=== PATIENT | female | born 1940 | race Caucasian/White ===

== ENCOUNTER 2017-10-24 10:26 | Inpatient (IN) | payer MEDICARE, MEDICAID ==
[~2017-10-24] VITALS: Ht 162.6 cm; Wt 62.9 kg
[~2017-10-24 10:26] MED LIST: ALBU8.5H8 IH; AMIN30LI2; APIX2.5T PO; FOLI0.8T22 PO; LACT10SO PO; LEVO250T58 PO; LEVO75TA PO; ONDA4TAB9 SL; OXYC15TA88 PO; PHEN32.43 PO; PRAV10TA38 PO; PRED5TAB PO; TACR1CAP28 PO; TRIA15CR61 TP; VITA1TAB20 PO; VITC500T PO; [UNRECOGNIZED DRUG - CODE] TOP
[2017-10-24] MEDS ORDERED: sucralfate 1 gm tablet PO ONE (11:15)
[2017-10-24] MEDS ORDERED: mag hydrox/Alum hydrox/simeth 30ml oral suspension PO ONE (11:15)
[2017-10-24] MEDS ORDERED: famotidine/PF 10 mg/ml inj IV ONE (11:15)
[2017-10-24] MEDS ORDERED: morphine 4 MG/ML inj SYRINge IV ONE (11:15)
[2017-10-24] MEDS ORDERED: LIDOcaine Viscous 15ml cup PO ONE (11:15)
[2017-10-24 11:18] LABS: BASOPHILS % (AUTO) 0 % (0-1); EOSINOPHILS # (AUTO) 0.1 X10'3 (0-0.9); EOSINOPHILS % (AUTO) 2.3 % (0-6); HEMOGLOBIN 12.8 g/dl (12.0-16.0); LYMPHOCYTES # (AUTO) 0.2 X10'3 (1.1-4.8); MEAN CORPUSCULAR HEMOGLOBIN 33.6 PG (27.0-31.0); MEAN CORPUSCULAR HGB CONC 32.9 % (33.0-36.5); MEAN PLATELET VOLUME 7.7 FL (7.4-10.4); MONOCYTES # (AUTO) 0.4 X10'3 (0-0.9); MONOCYTES % (AUTO) 7.7 % (2-12); NEUTROPHILS # (AUTO) 4.1 X10'3 (1.8-7.7); PLATELET COUNT 108 X10'3 (140-440); RED BLOOD COUNT 3.82 X10'6 (4.20-5.60); RED CELL DISTRIBUTION WIDTH 15.6 % (11.5-14.5); WHITE BLOOD COUNT 4.8 X10'3 (4.5-11.0)
[2017-10-24 11:29] LABS: PARTIAL THROMBOPLASTIN TIME 32 SECONDS (22-32); PROTHROMBIN TIME 10.7 SECONDS (9.0-12.0)
[2017-10-24 11:34] LABS: ALANINE AMINOTRANSFERASE 16 U/L (12-78); ALBUMIN 3.2 G/DL (3.4-5.0); ALBUMIN/GLOBULIN RATIO 0.7 (1.1-1.5); ALKALINE PHOSPHATASE 74 IU/L (46-116); ANION GAP 10 (8-16); ASPARTATE AMINO TRANSFERASE 21 U/L (10-37); BILIRUBIN,TOTAL 0.4 MG/DL (0.1-1.0); BLOOD UREA NITROGEN 50 MG/DL (7-18); BUN/CREATININE RATIO 9.6 (6.6-38.0); CALCIUM 8.2 MG/DL (8.5-10.1); CHLORIDE 97 MMOL/L (99-107); CREATININE 5.23 MG/DL (0.40-0.90); GLUCOSE 114 MG/DL (70-104); POTASSIUM 4.1 MMOL/L (3.5-5.1); SODIUM 138 MMOL/L (135-145); TOTAL CARBON DIOXIDE 31.4 MMOL/L (24-32); eGFR 8 ML/MIN
[2017-10-24] MEDS ORDERED: morphine 4 MG/ML inj SYRINge IM ONE (12:05)
[2017-10-24] MEDS ORDERED: FAMO40TA73 PO (14:16)
[2017-10-24] MEDS ORDERED: levoFLOXACIN-Levaquin 750MG/D5 150 ML IV ONE (15:00)
[2017-10-24] MEDS ORDERED: famotidine 20mg tablet PO ONE (15:00)
[2017-10-24] MEDS ORDERED: acetaminophen 325mg tablet PO PRN (16:30)
[2017-10-24] MEDS ORDERED: bisacodyl 10mg suppository rectal RC PRN (16:30)
[2017-10-24] MEDS ORDERED: ondansetron/PF 4mg/2ml inj IV PRN (16:30)
[2017-10-24] MEDS ORDERED: HYDROmorphone inj. 0.5 MG/0.5 ML DISP.SYRIN IV PRN (16:30)
[2017-10-24] MEDS ORDERED: HYDROcodone/acetaminophen 5mg/325mg tablet PO PRN (16:30)
[2017-10-24] MEDS: diphenhydrAMINE 50 mg/ml inj IV PRN (16:51)
[2017-10-24] MEDS ORDERED: ASCO500C15 PO (17:03)
[2017-10-24] MEDS ORDERED: RANI150T8 PO (17:03)
[2017-10-24] MEDS ORDERED: MULT-38 PO (17:03)
[2017-10-24] MEDS ORDERED: DOCU100C59 PO (17:03)
[2017-10-24] MEDS ORDERED: VIT1TABL50 PO (17:03)
[2017-10-24] MEDS ORDERED: albuterol 2.5 MG/3 ML nebule NEB ONE (17:25)
[2017-10-24] MEDS: docusate sod 100mg capsule PO SCH (19:59)
[2017-10-25] VITALS: BP 121/57
[2017-10-25] MEDS: diphenhydrAMINE 50 mg/ml inj IV PRN ×4 (00:15→23:24)
[2017-10-25] MEDS: oxyCODONE IR 5mg (immed. release) tablet PO PRN ×4 (00:15→19:04)
[2017-10-25] MEDS: pantoprazole 40 MG vial IV SCH ×2 (00:15→08:11)
[2017-10-25 01:10] VITALS: BP 111/55
[2017-10-25 06:02] LABS: BASOPHILS % (AUTO) 0.9 % (0-1); EOSINOPHILS # (AUTO) 0.1 X10'3 (0-0.9); EOSINOPHILS % (AUTO) 3.1 % (0-6); HEMATOCRIT 34.5 % (35.0-45.0); HEMOGLOBIN 11.3 g/dl (12.0-16.0); LYMPHOCYTES # (AUTO) 0.3 X10'3 (1.1-4.8); LYMPHOCYTES % (AUTO) 8.4 % (21-51); MEAN CORPUSCULAR HEMOGLOBIN 32.8 PG (27.0-31.0); MEAN CORPUSCULAR HGB CONC 32.8 % (33.0-36.5); MEAN CORPUSCULAR VOLUME 100.1 FL (78-98); MEAN PLATELET VOLUME 7.8 FL (7.4-10.4); MONOCYTES # (AUTO) 0.5 X10'3 (0-0.9); MONOCYTES % (AUTO) 11.5 % (2-12); NEUTROPHILS # (AUTO) 3.1 X10'3 (1.8-7.7); NEUTROPHILS % (AUTO) 76.1 % (42-75); PLATELET COUNT 89 X10'3 (140-440); RED BLOOD COUNT 3.45 X10'6 (4.20-5.60); RED CELL DISTRIBUTION WIDTH 15.3 % (11.5-14.5)
[2017-10-25 07:21] VITALS: BP 124/63
[2017-10-25] MEDS ORDERED: heparin 1,000 units/ml 10ml inj IV ONE (08:00)
[2017-10-25] MEDS ORDERED: albumin (human) 25% 100ml IV 100 ML IV PRN (08:00)
[2017-10-25] MEDS ORDERED: heparin 1,000unit/ml 10ml vial 10 ML IV ONE (08:00)
[2017-10-25] MEDS ORDERED: levoFLOXACIN-Levaquin 250mg/D5 50 ML IV SCH (08:00)
[2017-10-25 08:10] LABS: ALBUMIN 2.7 G/DL (3.4-5.0); ANION GAP 11 (8-16); BLOOD UREA NITROGEN 62 MG/DL (7-18); BUN/CREATININE RATIO 10.2 (6.6-38.0); CALCIUM 7.6 MG/DL (8.5-10.1); CHLORIDE 96 MMOL/L (99-107); CREATININE 6.07 MG/DL (0.40-0.90); GLUCOSE 86 MG/DL (70-104); MAGNESIUM 2.4 MG/DL (1.5-2.4); PHOSPHORUS 4.2 MG/DL (2.3-4.5); POTASSIUM 4.1 MMOL/L (3.5-5.1); SODIUM 136 MMOL/L (135-145); TOTAL CARBON DIOXIDE 28.9 MMOL/L (24-32); eGFR 7 ML/MIN
[2017-10-25] MEDS: docusate sod 100mg capsule PO SCH ×3 (08:11→19:33)
[2017-10-25] MEDS ORDERED: LIDOcaine 1% (10mg/ml) 2ml vial ONE (09:51)
[2017-10-25 11:15] VITALS: BP 106/68
[2017-10-25] MEDS ORDERED: triamcinolone acetonide 0.5% cream 15gm TP PRN (12:45)
[2017-10-25] MEDS ORDERED: albuterol 2.5 MG/3 ML nebule NEB PRN (12:45)
[2017-10-25] MEDS ORDERED: LIDOcaine/PRILOcaine 5gm cream TP PRN (12:45)
[2017-10-25] MEDS ORDERED: lactulose 20gm/30ml cup PO PRN ×3 (12:55→13:00)
[2017-10-25] MEDS ORDERED: multivitamins, therapeutics tablet PO ONE (15:20)
[2017-10-25] MEDS ORDERED: levoTHYROXINE 75mcg tablet PO ONE (15:20)
[2017-10-25] MEDS ORDERED: folic acid/vitamin B complex w/vitamin C 0.8mg tablet PO ONE (15:20)
[2017-10-25] MEDS ORDERED: lactobacillus rhamnosus 10,000 MMU CELLS/CAPSULE PO ONE (15:20)
[2017-10-25] MEDS ORDERED: docusate sod 100mg capsule PO ONE (15:20)
[2017-10-25] MEDS ORDERED: famotidine 20mg tablet PO ONE (15:20)
[2017-10-25] MEDS ORDERED: ascorbic acid 500mg tablet PO ONE (15:20)
[2017-10-25] MEDS ORDERED: tacrolimus anhydrous 1mg capsule PO ONE (15:25)
[2017-10-25] MEDS ORDERED: predniSONE 5mg tablet PO ONE (15:25)
[2017-10-25] MEDS ORDERED: apixaban 2.5mg tablet PO ONE (15:25)
[2017-10-25] MEDS: tacrolimus anhydrous 1mg capsule PO SCH (17:05)
[2017-10-25] MEDS: folic acid/vitamin B complex w/vitamin C 0.8mg tablet PO SCH (17:05)
[2017-10-25] MEDS: predniSONE 5mg tablet PO SCH (17:06)
[2017-10-25] MEDS: apixaban 2.5mg tablet PO SCH (19:32)
[2017-10-25] MEDS: lactobacillus rhamnosus 10,000 MMU CELLS/CAPSULE PO SCH (19:32)
[2017-10-25 20:00] VITALS: BP 122/74
[2017-10-25] MEDS ORDERED: PROTEIN HYDROLYS SCH (20:00)
[2017-10-25] MEDS ORDERED: AMINO ACIDS SCH (20:00)
[2017-10-26] VITALS: BP 114/62
[2017-10-26] MEDS: oxyCODONE IR 5mg (immed. release) tablet PO PRN ×2 (02:24→09:21)
[2017-10-26 06:00] LABS: ALBUMIN 2.7 G/DL (3.4-5.0); ANION GAP 10 (8-16); BLOOD UREA NITROGEN 38 MG/DL (7-18); BUN/CREATININE RATIO 8.5 (6.6-38.0); CALCIUM 8.1 MG/DL (8.5-10.1); CHLORIDE 97 MMOL/L (99-107); CREATININE 4.45 MG/DL (0.40-0.90); GLUCOSE 88 MG/DL (70-104); MAGNESIUM 2.4 MG/DL (1.5-2.4); PHOSPHORUS 3.5 MG/DL (2.3-4.5); SODIUM 136 MMOL/L (135-145); TOTAL CARBON DIOXIDE 28.7 MMOL/L (24-32); eGFR 10 ML/MIN
[2017-10-26 06:02] LABS: POTASSIUM 4.3 MMOL/L (3.5-5.1)
[2017-10-26 06:09] LABS: BASOPHILS % (AUTO) 0.1 % (0-1); EOSINOPHILS # (AUTO) 0.2 X10'3 (0-0.9); EOSINOPHILS % (AUTO) 4.3 % (0-6); HEMATOCRIT 36.9 % (35.0-45.0); HEMOGLOBIN 12.3 g/dl (12.0-16.0); LYMPHOCYTES # (AUTO) 0.4 X10'3 (1.1-4.8); LYMPHOCYTES % (AUTO) 8.3 % (21-51); MEAN CORPUSCULAR HEMOGLOBIN 34.3 PG (27.0-31.0); MEAN CORPUSCULAR HGB CONC 33.3 % (33.0-36.5); MEAN PLATELET VOLUME 8.3 FL (7.4-10.4); MONOCYTES # (AUTO) 0.5 X10'3 (0-0.9); MONOCYTES % (AUTO) 12.4 % (2-12); NEUTROPHILS # (AUTO) 3.2 X10'3 (1.8-7.7); NEUTROPHILS % (AUTO) 74.9 % (42-75); PLATELET COUNT 90 X10'3 (140-440); RED BLOOD COUNT 3.58 X10'6 (4.20-5.60); RED CELL DISTRIBUTION WIDTH 15.4 % (11.5-14.5); WHITE BLOOD COUNT 4.3 X10'3 (4.5-11.0)
[2017-10-26 07:04] VITALS: BP 116/74
[2017-10-26] MEDS ORDERED: ascorbic acid 500mg tablet PO SCH (08:00)
[2017-10-26] MEDS ORDERED: famotidine 20mg tablet PO SCH (08:00)
[2017-10-26] MEDS ORDERED: levoTHYROXINE 75mcg tablet PO SCH (08:00)
[2017-10-26] MEDS ORDERED: folic acid/vitamin B complex w/vitamin C 0.8mg tablet PO SCH (08:00)
[2017-10-26] MEDS ORDERED: multivitamins, therapeutics tablet PO SCH (08:00)
[2017-10-26] MEDS: docusate sod 100mg capsule PO SCH (08:37)
[2017-10-26] MEDS: lactobacillus rhamnosus 10,000 MMU CELLS/CAPSULE PO SCH (08:37)
[2017-10-26] MEDS: predniSONE 5mg tablet PO SCH (08:38)
[2017-10-26] MEDS: apixaban 2.5mg tablet PO SCH (08:38)
[2017-10-26] MEDS: tacrolimus anhydrous 1mg capsule PO SCH (08:38)
[2017-10-26] MEDS: folic acid/vitamin B complex w/vitamin C 0.8mg tablet PO SCH (08:38)
[2017-10-26] MEDS ORDERED: levoFLOXACIN 250mg tablet PO SCH (11:00)
[2017-10-26 11:13] VITALS: BP 119/65
[2017-10-26] MEDS ORDERED: diphenhydrAMINE 25mg capsule PO PRN (11:25)
[2017-10-26 12:27] VITALS: BP 116/74
[2017-10-26] MEDS ORDERED: PANT-47 PO (15:55)
[2017-10-26] MEDS ORDERED: LEVO250T58 PO (15:55)
[2017-10-26] MEDS ORDERED: GUAI473S11 PO (15:55)
== END 2017-10-26 17:15 | disposition home or self-care (01) | DRG 193 ==
LOC: ER 10:27 → ED HOLD 16:27 → MED 3N 22:17
PROVIDERS: ADMIT Internal Medicine Critical Care Medicine; ATTEND Internal Medicine Critical Care Medicine
PROC: 5A1D70Z Performance of Urinary Filtration, Intermittent, Less than 6 Hours Per Day (ICD-10-PCS; principal; 2017-10-25)
DX: J18.9 Pneumonia, unspecified organism (principal); N18.6 End stage renal disease; I48.91 Unspecified atrial fibrillation; N28.1 Cyst of kidney, acquired; J44.0 Chronic obstructive pulmonary disease with (acute) lower respiratory infection; G89.29 Other chronic pain; K21.9 Gastro-esophageal reflux disease without esophagitis; Z99.2 Dependence on renal dialysis; Z90.2 Acquired absence of lung [part of]; Z90.49 Acquired absence of other specified parts of digestive tract; Z88.8 Allergy status to other drugs, medicaments and biological substances; Z88.1 Allergy status to other antibiotic agents; Z88.0 Allergy status to penicillin; Z88.2 Allergy status to sulfonamides; Z79.899 Other long term (current) drug therapy; Z85.118 Personal history of other malignant neoplasm of bronchus and lung
CPT/HCPCS: 36415; 71045; 71250; 80048; 80053; 83735; 84100; 84484; 85025; 85610; 85730; 87070; 93005; 94640; 94760; 96365; 96372; 97116; 97162; 97530; 99285; A6212; A6258; C9113; G0257; J1200; J1644; J1956; J2270; J3490; J7030; J7507; J7512; Q0163

== ENCOUNTER 2017-11-09 18:52 | Emergency (ER) | payer MEDICARE, MEDICAID ==
[~2017-11-09] VITALS: Ht 162.6 cm; Wt 59.0 kg
[~2017-11-09 18:52] MED LIST changes: +DOCU100C59 PO; +MULT-38 PO; +PANT-47 PO; +VIT1TABL50 PO; -VITA1TAB20 PO
[2017-11-09] MEDS ORDERED: oxyCODONE IR 5mg (immed. release) tablet PO ONE (20:15)
[2017-11-09] MEDS ORDERED: ondansetron/PF 4mg/2ml inj IV ONE (21:35)
[2017-11-09] MEDS ORDERED: morphine 4 MG/ML inj SYRINge IM ONE (21:35)
[2017-11-09] MEDS ORDERED: morphine 4 MG/ML inj SYRINge IV ONE ×2 (22:25→22:40)
[2017-11-09 23:21] VITALS: BP 140/79
== END 2017-11-09 23:31 | disposition home or self-care (01) ==
LOC: EDSEX → MERGE 18:52 → ER 18:52
DX: S02.81XA Fracture of other specified skull and facial bones, right side, initial encounter for closed fracture (principal); S42.411A Displaced simple supracondylar fracture without intercondylar fracture of right humerus, initial encounter for closed fracture; S00.83XA Contusion of other part of head, initial encounter; S20.211A Contusion of right front wall of thorax, initial encounter; N18.6 End stage renal disease; Z88.0 Allergy status to penicillin; Z88.2 Allergy status to sulfonamides; Z88.8 Allergy status to other drugs, medicaments and biological substances; Z79.899 Other long term (current) drug therapy; Z99.2 Dependence on renal dialysis; W01.0XXA Fall on same level from slipping, tripping and stumbling without subsequent striking against object, initial encounter; Y93.89 Activity, other specified; Y92.89 Other specified places as the place of occurrence of the external cause; Y99.8 Other external cause status
CPT/HCPCS: 29105; 70450; 70486; 71045; 72125; 73070; 73110; 96372; 96374; 96375; 99284; A4565; J2270; J2405

== ENCOUNTER 2017-11-20 14:09 | Emergency (ER) | payer MEDICARE, MEDICAID ==
[~2017-11-20] VITALS: Ht 162.6 cm; Wt 58.6 kg
[2017-11-20 14:34] VITALS: BP 101/61
== END 2017-11-20 17:43 | disposition home or self-care (01) ==
LOC: EDSEX → ER 14:10
DX: S42.401D Unspecified fracture of lower end of right humerus, subsequent encounter for fracture with routine healing (principal); I48.91 Unspecified atrial fibrillation; J44.9 Chronic obstructive pulmonary disease, unspecified; Z90.49 Acquired absence of other specified parts of digestive tract; Z98.890 Other specified postprocedural states; Z85.118 Personal history of other malignant neoplasm of bronchus and lung; Z88.0 Allergy status to penicillin; Z88.2 Allergy status to sulfonamides; Z88.8 Allergy status to other drugs, medicaments and biological substances; Z79.899 Other long term (current) drug therapy; X58.XXXD Exposure to other specified factors, subsequent encounter
CPT/HCPCS: 29105; 99283

== ENCOUNTER 2017-11-23 10:24 | Outpatient (CLI) | payer MEDICARE, MEDICAID | END 2017-11-23 11:56 | disposition home or self-care (01) | LOC: ORTHO 10:24 | PROVIDERS: ATTEND Nurse Practitioner Family | DX: S42.414A Nondisplaced simple supracondylar fracture without intercondylar fracture of right humerus, initial encounter for closed fracture (principal); I12.9 Hypertensive chronic kidney disease with stage 1 through stage 4 chronic kidney disease, or unspecified chronic kidney disease; N18.9 Chronic kidney disease, unspecified; I48.91 Unspecified atrial fibrillation; E78.00 Pure hypercholesterolemia, unspecified; J44.9 Chronic obstructive pulmonary disease, unspecified; K21.9 Gastro-esophageal reflux disease without esophagitis; E05.90 Thyrotoxicosis, unspecified without thyrotoxic crisis or storm; Z88.0 Allergy status to penicillin; Z88.5 Allergy status to narcotic agent; Z99.2 Dependence on renal dialysis; Z88.2 Allergy status to sulfonamides; Z88.8 Allergy status to other drugs, medicaments and biological substances; Z87.891 Personal history of nicotine dependence; W01.0XXA Fall on same level from slipping, tripping and stumbling without subsequent striking against object, initial encounter; Y93.89 Activity, other specified; Y92.89 Other specified places as the place of occurrence of the external cause; Y99.8 Other external cause status | CPT/HCPCS: 73080; 99213; A6449 ==

== ENCOUNTER 2017-12-14 14:30 | Outpatient (CLI) | payer MEDICARE, MEDICAID | END 2017-12-14 15:38 | disposition home or self-care (01) | LOC: ORTHO 14:30 | PROVIDERS: ATTEND Nurse Practitioner Family | DX: S42.41 Simple supracondylar fracture without intercondylar fracture of humerus (principal); I48.91 Unspecified atrial fibrillation; E78.00 Pure hypercholesterolemia, unspecified; J44.9 Chronic obstructive pulmonary disease, unspecified; K21.9 Gastro-esophageal reflux disease without esophagitis; N18.9 Chronic kidney disease, unspecified; E05.90 Thyrotoxicosis, unspecified without thyrotoxic crisis or storm; Z88.2 Allergy status to sulfonamides; Z88.8 Allergy status to other drugs, medicaments and biological substances; X58.XXXD Exposure to other specified factors, subsequent encounter | CPT/HCPCS: 73080; 99213; A6449 ==

== ENCOUNTER 2017-12-27 13:54 | Outpatient (CLI) | payer MEDICARE, MEDICAID ==
[~2017-12-27 13:54] MED LIST changes: +CAFFEINE CITRATE 60 MG/3 ML injection vial IV ONE; +regadenoson 0.4mg/5ml syringe IV ONE
[2017-12-27 13:56] VITALS: BP 111/58
== END 2017-12-27 14:46 | disposition home or self-care (01) ==
LOC: ORTHO 13:54
PROVIDERS: ATTEND Nurse Practitioner Family
DX: S42.41 Simple supracondylar fracture without intercondylar fracture of humerus (principal); I48.91 Unspecified atrial fibrillation; J44.9 Chronic obstructive pulmonary disease, unspecified; E78.00 Pure hypercholesterolemia, unspecified; N18.9 Chronic kidney disease, unspecified; E03.9 Hypothyroidism, unspecified; Z88.8 Allergy status to other drugs, medicaments and biological substances; X58.XXXD Exposure to other specified factors, subsequent encounter
CPT/HCPCS: 73080; 99213

== ENCOUNTER 2018-01-18 11:22 | Outpatient (CLI) | payer MEDICARE, MEDICAID ==
[~2018-01-18 11:22] MED LIST changes: -CAFFEINE CITRATE 60 MG/3 ML injection vial IV ONE; -regadenoson 0.4mg/5ml syringe IV ONE
[2018-01-18 11:41] VITALS: BP 115/56
== END 2018-01-18 12:07 | disposition home or self-care (01) ==
LOC: ORTHO 11:22
PROVIDERS: ATTEND Nurse Practitioner Family
DX: S42.41 Simple supracondylar fracture without intercondylar fracture of humerus (principal); I48.91 Unspecified atrial fibrillation; E78.00 Pure hypercholesterolemia, unspecified; J44.9 Chronic obstructive pulmonary disease, unspecified; K21.9 Gastro-esophageal reflux disease without esophagitis; I12.9 Hypertensive chronic kidney disease with stage 1 through stage 4 chronic kidney disease, or unspecified chronic kidney disease; N18.9 Chronic kidney disease, unspecified; E21.3 Hyperparathyroidism, unspecified; Z88.2 Allergy status to sulfonamides; Z88.0 Allergy status to penicillin; Z88.8 Allergy status to other drugs, medicaments and biological substances; X58.XXXD Exposure to other specified factors, subsequent encounter
CPT/HCPCS: 73080; 99213

== ENCOUNTER 2018-02-06 10:27 | Outpatient (CLI) | payer MEDICARE, MEDICAID ==
[2018-02-06 10:31] VITALS: BP 98/59
== END 2018-02-06 11:15 | disposition home or self-care (01) ==
LOC: ORTHO 10:27
PROVIDERS: ATTEND Nurse Practitioner Family
DX: S42.41 Simple supracondylar fracture without intercondylar fracture of humerus (principal); I48.91 Unspecified atrial fibrillation; E78.00 Pure hypercholesterolemia, unspecified; J44.9 Chronic obstructive pulmonary disease, unspecified; K21.9 Gastro-esophageal reflux disease without esophagitis; I12.9 Hypertensive chronic kidney disease with stage 1 through stage 4 chronic kidney disease, or unspecified chronic kidney disease; N18.9 Chronic kidney disease, unspecified; E05.90 Thyrotoxicosis, unspecified without thyrotoxic crisis or storm; Z88.2 Allergy status to sulfonamides; Z88.8 Allergy status to other drugs, medicaments and biological substances; Z87.891 Personal history of nicotine dependence; W01.0XXD Fall on same level from slipping, tripping and stumbling without subsequent striking against object, subsequent encounter
CPT/HCPCS: 73080; 99213

== ENCOUNTER 2018-02-16 19:55 | Emergency (ER) | payer MEDICARE, MEDICAID ==
[~2018-02-16] VITALS: Ht 162.6 cm; Wt 59.1 kg
[~2018-02-16 19:55] MED LIST changes: -oxyCODONE/APAP 10/325mg tablet PO ONE
[2018-02-16 20:00] VITALS: BP 113/63
[2018-02-16] MEDS ORDERED: morphine 4 MG/ML inj SYRINge IM ONE (22:20)
== END 2018-02-16 22:37 | disposition home or self-care (01) ==
LOC: ER 19:56
DX: S50.01XA Contusion of right elbow, initial encounter (principal); I48.91 Unspecified atrial fibrillation; J44.9 Chronic obstructive pulmonary disease, unspecified; Z88.1 Allergy status to other antibiotic agents; Z88.2 Allergy status to sulfonamides; Z91.018 Allergy to other foods; Z79.2 Long term (current) use of antibiotics; Z79.899 Other long term (current) drug therapy; Z99.2 Dependence on renal dialysis; Z90.49 Acquired absence of other specified parts of digestive tract; Z98.890 Other specified postprocedural states; Z94.0 Kidney transplant status; Z90.89 Acquired absence of other organs; W01.0XXA Fall on same level from slipping, tripping and stumbling without subsequent striking against object, initial encounter; Y93.89 Activity, other specified; Y92.89 Other specified places as the place of occurrence of the external cause; Y99.8 Other external cause status
CPT/HCPCS: 73080; 73130; 96372; 99284; J2270

== ENCOUNTER → 2018-02-16 | Emergency (ER) | payer MEDICARE, MEDICAID ==
[~2018-02-16] VITALS: Ht 162.6 cm; Wt 59.1 kg
[~2018-02-16] MED LIST changes: +oxyCODONE/APAP 10/325mg tablet PO ONE
[2018-02-16 07:46] VITALS: BP 112/67
== END | disposition home or self-care (01) ==
LOC: ER 05:00
DX: S80.01XA Contusion of right knee, initial encounter (principal); S70.01XA Contusion of right hip, initial encounter; S09.90XA Unspecified injury of head, initial encounter; I48.91 Unspecified atrial fibrillation; J44.9 Chronic obstructive pulmonary disease, unspecified; Z99.2 Dependence on renal dialysis; Z90.49 Acquired absence of other specified parts of digestive tract; Z98.890 Other specified postprocedural states; Z94.0 Kidney transplant status; Z90.89 Acquired absence of other organs; Z87.891 Personal history of nicotine dependence; Z88.1 Allergy status to other antibiotic agents; Z88.0 Allergy status to penicillin; Z88.2 Allergy status to sulfonamides; Z88.8 Allergy status to other drugs, medicaments and biological substances; Z79.899 Other long term (current) drug therapy; Z79.2 Long term (current) use of antibiotics; W22.8XXA Striking against or struck by other objects, initial encounter; Y93.89 Activity, other specified; Y92.89 Other specified places as the place of occurrence of the external cause; Y99.8 Other external cause status
CPT/HCPCS: 70450; 71045; 72170; 73564; 99284; J7030

== ENCOUNTER 2018-04-07 09:19 | Emergency (ER) | payer MEDICARE, MEDICAID ==
[~2018-04-07] VITALS: Ht 162.6 cm; Wt 59.0 kg
[2018-04-07 11:34] LABS: BASOPHILS % (AUTO) 0.3 % (0-1); EOSINOPHILS # (AUTO) 0.1 X10'3 (0-0.9); EOSINOPHILS % (AUTO) 2.4 % (0-6); HEMATOCRIT 32.5 % (35.0-45.0); HEMOGLOBIN 11.2 g/dl (12.0-16.0); LYMPHOCYTES # (AUTO) 0.3 X10'3 (1.1-4.8); LYMPHOCYTES % (AUTO) 7.6 % (21-51); MEAN CORPUSCULAR HEMOGLOBIN 35.7 PG (27.0-31.0); MEAN CORPUSCULAR HGB CONC 34.5 % (33.0-36.5); MEAN CORPUSCULAR VOLUME 103.5 FL (78-98); MEAN PLATELET VOLUME 8.7 FL (7.4-10.4); MONOCYTES # (AUTO) 0.4 X10'3 (0-0.9); MONOCYTES % (AUTO) 10.5 % (2-12); NEUTROPHILS % (AUTO) 79.2 % (42-75); PLATELET COUNT 84 X10'3 (140-440); RED BLOOD COUNT 3.14 X10'6 (4.20-5.60); RED CELL DISTRIBUTION WIDTH 13.4 % (11.5-14.5); WHITE BLOOD COUNT 3.8 X10'3 (4.5-11.0)
[2018-04-07 11:45] LABS: ALANINE AMINOTRANSFERASE 16 U/L (12-78); ALBUMIN 2.9 G/DL (3.4-5.0); ALBUMIN/GLOBULIN RATIO 0.7 (1.1-1.5); ALKALINE PHOSPHATASE 86 IU/L (46-116); ANION GAP 8 (8-16); ASPARTATE AMINO TRANSFERASE 19 U/L (10-37); BILIRUBIN,TOTAL 0.4 MG/DL (0.1-1.0); BLOOD UREA NITROGEN 48 MG/DL (7-18); BUN/CREATININE RATIO 11.9 (6.6-38.0); CALCIUM 8.4 MG/DL (8.5-10.1); CHLORIDE 99 MMOL/L (99-107); CREATININE 4.05 MG/DL (0.40-0.90); GLUCOSE 87 MG/DL (70-104); SODIUM 141 MMOL/L (135-145); TOTAL PROTEIN 7.3 G/DL (6.4-8.2); eGFR 11 ML/MIN
[2018-04-07 11:48] LABS: PLATELET ESTIMATE DECREASED; POLYCHROMASIA FEW
[2018-04-07 12:57] VITALS: BP 131/70
[2018-04-07] MEDS ORDERED: levoFLOXACIN 250mg tablet PO ONE (13:00)
[2018-04-07] MEDS ORDERED: LEVO500T89 PO (13:11)
== END 2018-04-07 14:03 | disposition home or self-care (01) ==
LOC: ER 09:20
DX: N39.0 Urinary tract infection, site not specified (principal); E87.6 Hypokalemia; J44.9 Chronic obstructive pulmonary disease, unspecified; I48.91 Unspecified atrial fibrillation; Z90.49 Acquired absence of other specified parts of digestive tract; Z88.2 Allergy status to sulfonamides; Z88.0 Allergy status to penicillin; Z88.1 Allergy status to other antibiotic agents; Z91.018 Allergy to other foods; Z79.899 Other long term (current) drug therapy; Z79.2 Long term (current) use of antibiotics
CPT/HCPCS: 36415; 80053; 85025; 87077; 87088; 87186; 99284

== ENCOUNTER 2018-04-24 10:25 | Outpatient (CLI) | payer MEDICARE, MEDICAID ==
[2018-04-24 10:27] VITALS: BP 95/53
== END 2018-04-24 11:11 | disposition home or self-care (01) ==
LOC: ORTHO 10:25
PROVIDERS: ATTEND Nurse Practitioner Family
DX: M25.521 Pain in right elbow (principal); R56.9 Unspecified convulsions; I48.91 Unspecified atrial fibrillation; E78.00 Pure hypercholesterolemia, unspecified; J44.9 Chronic obstructive pulmonary disease, unspecified; K21.9 Gastro-esophageal reflux disease without esophagitis; I12.9 Hypertensive chronic kidney disease with stage 1 through stage 4 chronic kidney disease, or unspecified chronic kidney disease; N18.9 Chronic kidney disease, unspecified; F17.210 Nicotine dependence, cigarettes, uncomplicated; Z90.710 Acquired absence of both cervix and uterus; Z99.2 Dependence on renal dialysis; Z94.0 Kidney transplant status; Z88.0 Allergy status to penicillin; Z88.1 Allergy status to other antibiotic agents; Z88.2 Allergy status to sulfonamides; Z88.8 Allergy status to other drugs, medicaments and biological substances
CPT/HCPCS: 73080; 99213

== ENCOUNTER 2018-07-24 10:45 | Inpatient (IN) | payer MEDICARE, MEDICAID ==
[~2018-07-24] VITALS: Ht 162.6 cm; Wt 68.3 kg
[2018-07-24] VITALS (7 sets, daily range): BP systolic 98–144; BP diastolic 42–73
[2018-07-24] MEDS ORDERED: normal saline 1000ML IV soln IVB ONE (11:10)
[2018-07-24 11:42] LABS: BASOPHILS % (AUTO) 0.2 % (0-1); EOSINOPHILS % (AUTO) 0.6 % (0-6); HEMATOCRIT 40.7 % (35.0-45.0); HEMOGLOBIN 13.3 g/dl (12.0-16.0); LYMPHOCYTES # (AUTO) 0.1 X10'3 (1.1-4.8); LYMPHOCYTES % (AUTO) 1.9 % (21-51); MEAN CORPUSCULAR HGB CONC 32.7 % (33.0-36.5); MEAN CORPUSCULAR VOLUME 103.9 FL (78-98); MONOCYTES # (AUTO) 0.4 X10'3 (0-0.9); MONOCYTES % (AUTO) 5.5 % (2-12); NEUTROPHILS # (AUTO) 6.3 X10'3 (1.8-7.7); NEUTROPHILS % (AUTO) 91.8 % (42-75); PLATELET COUNT 134 X10'3 (140-440); RED BLOOD COUNT 3.92 X10'6 (4.20-5.60); RED CELL DISTRIBUTION WIDTH 16.4 % (11.5-14.5); WHITE BLOOD COUNT 6.8 X10'3 (4.5-11.0)
[2018-07-24 12:01] LABS: ALANINE AMINOTRANSFERASE 24 U/L (12-78); ALBUMIN 3.2 G/DL (3.4-5.0); ALBUMIN/GLOBULIN RATIO 0.6 (1.1-1.5); ALKALINE PHOSPHATASE 100 IU/L (46-116); ANION GAP 12 (8-16); ASPARTATE AMINO TRANSFERASE 31 U/L (10-37); BILIRUBIN,TOTAL 0.6 MG/DL (0.1-1.0); BLOOD UREA NITROGEN 46 MG/DL (7-18); BUN/CREATININE RATIO 9.8 (6.6-38.0); CALCIUM 8.6 MG/DL (8.5-10.1); CHLORIDE 96 MMOL/L (99-107); CREATININE 4.69 MG/DL (0.40-0.90); GLUCOSE 102 MG/DL (70-104); SODIUM 138 MMOL/L (135-145); TOTAL CARBON DIOXIDE 29.6 MMOL/L (24-32); TOTAL PROTEIN 8.6 G/DL (6.4-8.2); eGFR 9 ML/MIN
[2018-07-24] MEDS ORDERED: diltiazem 5mg/ml 5ml inj. IV ONE (12:05)
[2018-07-24 12:06] LABS: POTASSIUM 3.6 MMOL/L (3.5-5.1)
[2018-07-24 12:07] LABS: INR 1.2 INR; PROTHROMBIN TIME 11.9 SECONDS (9.0-12.0)
--- NOTE | 2018-07-24 12:20 | NUR ---
REPORTED TO PROVIDER FRANKO MONSALVE THAT PTS BPS HAVE BEEN LOW, CARDIZEM NOT GIVEN. PT NOW MORE ALERT AND REQUESTING THAT HER "ROUTINE OXY" IS PAST DUE. PT EDUCATED THAT HER VS ARE TO LOW. PT REPOSITIONED FOR COMFORT AND PROVIDER UPDATED ON PT REQUEST
[2018-07-24 12:28] LABS: TROPONIN I 0.08 NG/ML (0.0-0.05)
[2018-07-24] MEDS ORDERED: naloxone 0.4 mg/ml inj IV ONE (12:30)
--- NOTE | 2018-07-24 12:50 | NUR ---
PT BEING SEEN BY DR TAVERAS AT BEDSIDE, RECEIVED VO TO NOT ADMINISTER CARDIZEM
[2018-07-24] MEDS ORDERED: albumin (Human) 5% 250ml 250 ML IV ONE ×2 (12:55→15:40)
--- NOTE | 2018-07-24 14:50 | NUR ---
WARM BLANKET GIVEN AND SOCKS PUT ON HER FEET.
[2018-07-24] MEDS ORDERED: acetaminophen 325mg tablet PO PRN (15:15)
[2018-07-24] MEDS ORDERED: bisacodyl 10mg suppository rectal RC PRN (15:15)
--- NOTE | 2018-07-24 15:33 | NUR ---
REPORTED TO DR. TAVERAS THAT PTS BPS ARE TRENDING DOWN AGAIN WITH MOST RECENT READING OF 82/38 AND HR 96. RECEIVED VO TO ADMINISTER ALBUMIN 5% 250ML IV X1 NOW.
--- NOTE | 2018-07-24 17:00 | NUR ---
Pt. to room 2009 from ED. A&0 x 4. Pics taken of sacrum/coccyx area that is red and non-blanching. No open area noted. Pt. immediately turned onto left side to offset pressure on red area. Foam dressing applied as well. VSS. Oral care provided to pt. Warm blankets provided to pt. Call light given. RN to call pt's spouse Don to check on him per pt. request.
--- NOTE | 2018-07-24 18:30 | NUR ---
Patient in room CICU 2008. I have received report from Sri MEJIAS, and had the opportunity to ask questions and assume patient care.
[2018-07-24] MEDS: HYDROmorphone inj. 0.5 MG/0.5 ML DISP.SYRIN IV PRN (18:55)
--- NOTE | 2018-07-24 19:00 | NUR ---
0.5mg PRN Dialudid given d/t PT calling out stating she hurt all over. PT was noted to be trembling. Will continue to monitor.
[2018-07-24] MEDS: ondansetron/PF 4mg/2ml inj IV PRN (19:02)
--- NOTE | 2018-07-24 19:30 | NUR ---
PT resting with no s/s of distress noted at this time. VSS. PT receiving 2L O2 to NC and tolerating well, O2 >94%. PT has 20g PIV to LUPE, flushes easily and is SL. Bed is locked and low. Call light is within reach. Will continue to monitor.
[2018-07-24] MEDS: docusate sod 100mg capsule PO SCH (21:13)
[2018-07-24] MEDS ORDERED: proCHLORperazine 10 MG/2 ml inj IV ONE (22:20)
--- NOTE | 2018-07-24 23:00 | NUR ---
PT had an episode of emesis, green bile. PT has received PRN Zofran 3 hrs prior, STILL OPERATOR GIN Dariel notified, order received for a one time order of 10mg Compazine. PT was cleaned up and is now resting with no s/s of distress noted at this time. Will continue to monitor.
[2018-07-25] VITALS (25 sets, daily range): BP systolic 70–120; BP diastolic 37–64
[2018-07-25] MEDS ORDERED: amiodarone 150mg/dext, iso-os 100 ML IV ONE ×2 (01:45→21:55)
[2018-07-25] MEDS ORDERED: albumin 25% 50mL bottle 100 ML IV ONE ×5 (02:20→21:55)
[2018-07-25] MEDS: albumin 25% 50mL bottle 100 ML IV SCH ×3 (02:34→02:36)
--- NOTE | 2018-07-25 02:45 | NUR ---
PT HR has been trending up, and BP trending down. FRAMING SPECIALIST Dariel notified and order received for Amiodarone loading dose. Will continue to monitor as well as 200ml of 25% albumin. Will continue to monitor.
--- NOTE | 2018-07-25 03:30 | NUR ---
Pharmacy called d/t second Albumin order being cancelled for being a duplicate. Pharmacist states two separate orders were not needed. PT did receive a total of 200ml as ordered from NURY Vieira.
--- NOTE | 2018-07-25 06:00 | NUR ---
Patient in room CICU 2008. I have received report from MAGALIE Watson and had the opportunity to ask questions and assume patient care.
--- NOTE | 2018-07-25 06:40 | NUR ---
Problems reprioritized. Patient report given, questions answered & plan of care reviewed with Robert MEJIAS.
[2018-07-25] MEDS: docusate sod 100mg capsule PO SCH ×2 (07:22→08:00)
[2018-07-25] MEDS: HYDROcodone/acetaminophen 5mg/325mg tablet PO PRN ×2 (07:23→12:04)
[2018-07-25] MEDS ORDERED: albuterol 2.5 MG/3 ML nebule NEB PRN (07:25)
[2018-07-25] MEDS ORDERED: LIDOcaine/PRILOcaine 5gm cream TP PRN (07:30)
[2018-07-25] MEDS ORDERED: lactulose 20gm/30ml cup PO PRN (07:30)
[2018-07-25] MEDS ORDERED: betamethasone diprop. 0.05% ointment 15gm TP PRN (07:40)
[2018-07-25] MEDS: tacrolimus anhydrous 1mg capsule PO SCH (08:00)
[2018-07-25] MEDS ORDERED: albumin (Human) 5% 250ml 250 ML IV PRN (08:00)
[2018-07-25] MEDS: apixaban 2.5mg tablet PO SCH ×2 (08:11→19:56)
[2018-07-25] MEDS: folic acid/vitamin B complex w/vitamin C 0.8mg tablet PO SCH (08:11)
[2018-07-25] MEDS: atorvastatin 10mg tablet PO SCH (08:11)
[2018-07-25] MEDS: ascorbic acid 500mg tablet PO SCH (08:11)
[2018-07-25] MEDS: multivitamins, therapeutics tablet PO SCH (08:12)
[2018-07-25] MEDS: predniSONE 5mg tablet PO SCH (08:12)
[2018-07-25] MEDS: levoTHYROXINE 75mcg tablet PO SCH (08:14)
[2018-07-25] MEDS: ondansetron/PF 4mg/2ml inj IV PRN ×2 (08:24→13:34)
[2018-07-25] MEDS ORDERED: LIDOcaine 1%/PF 5ML 10 MG/ML VIAL SQ ONE (09:55)
--- NOTE | 2018-07-25 10:00 | NUR ---
talked with md koenig about pts pain regemine he will restart at home dose
[2018-07-25 10:46] LABS: BASOPHILS % (AUTO) 0.1 % (0-1); EOSINOPHILS % (AUTO) 0 % (0-6); HEMATOCRIT 33.3 % (35.0-45.0); HEMOGLOBIN 10.8 g/dl (12.0-16.0); LYMPHOCYTES # (AUTO) 0.1 X10'3 (1.1-4.8); LYMPHOCYTES % (AUTO) 1.6 % (21-51); MEAN CORPUSCULAR HEMOGLOBIN 33.5 PG (27.0-31.0); MEAN CORPUSCULAR HGB CONC 32.4 % (33.0-36.5); MEAN CORPUSCULAR VOLUME 103.4 FL (78-98); MONOCYTES # (AUTO) 0.3 X10'3 (0-0.9); MONOCYTES % (AUTO) 6.6 % (2-12); NEUTROPHILS # (AUTO) 4.4 X10'3 (1.8-7.7); NEUTROPHILS % (AUTO) 91.7 % (42-75); PLATELET COUNT 81 X10'3 (140-440); RED BLOOD COUNT 3.22 X10'6 (4.20-5.60); RED CELL DISTRIBUTION WIDTH 16.7 % (11.5-14.5); WHITE BLOOD COUNT 4.8 X10'3 (4.5-11.0)
[2018-07-25 10:47] LABS: ALBUMIN 3.3 G/DL (3.4-5.0); ANION GAP 16 (8-16); BLOOD UREA NITROGEN 61 MG/DL (7-18); BUN/CREATININE RATIO 10.9 (6.6-38.0); CALCIUM 7.8 MG/DL (8.5-10.1); CHLORIDE 98 MMOL/L (99-107); CREATININE 5.62 MG/DL (0.40-0.90); GLUCOSE 126 MG/DL (70-104); POTASSIUM 3.8 MMOL/L (3.5-5.1); SODIUM 138 MMOL/L (135-145); TOTAL CARBON DIOXIDE 24.1 MMOL/L (24-32); eGFR 7 ML/MIN
[2018-07-25 11:09] LABS: INR 1.5 INR; PROTHROMBIN TIME 14.5 SECONDS (9.0-12.0)
[2018-07-25] MEDS ORDERED: OXYCODONE HCL 10 MG PO PRN (11:50)
[2018-07-25] MEDS ORDERED: ALBUTEROL SULFATE IH PRN (11:50)
[2018-07-25 11:51] LABS: PHOSPHORUS 3.8 MG/DL (2.3-4.5)
[2018-07-25] MEDS: diphenhydrAMINE 25mg capsule PO PRN (12:35)
[2018-07-25] MEDS: oxyCODONE IR 5mg (immed. release) tablet PO PRN ×2 (14:21→21:44)
--- NOTE | 2018-07-25 14:37 | NUR ---
Pt threw up within 2 minutes of her oxy administration i explained to her i cannot re administer it again, called md koenig waiting for a call back will continue to monitor
[2018-07-25 15:38] LABS: AMYLASE 34 U/L (25-115); LIPASE < 50 U/L (73-393)
[2018-07-25] MEDS ORDERED: diltiazem-D5W 125mg/125ml 125 ML IV SCH (15:45)
--- NOTE | 2018-07-25 16:57 | NUR ---
Patient in room CICU 2008. pt will be transferred to [facility]. I have received report from MAGALIE Greer and had the opportunity to ask questions and assume patient care.
--- NOTE | 2018-07-25 17:00 | NUR ---
Problems reprioritized. Patient report given, questions answered & plan of care reviewed with PCU nurse.
--- NOTE | 2018-07-25 17:05 | NUR ---
Pt transferred to PCU on bed all belongings sent with the pt, pt on transport monitor and then placed on mobile once on tele. Pt has a baseline of a low bp her last bp systolic in the low 100's. Cardizem gtt sent with pt and was labeled and hung up for the PCU nurse informed her of the set rate per md koenig and the delay in the gtt being hung was due to pharmacy. Nurse had no further questions she was with the pt at bedside and had orient with her. Pt was resting quietly and vitals stable.
--- NOTE | 2018-07-25 17:15 | NUR ---
PT ARRIVED WITH ALL BELONGINGS. PT PLACED ON BEDSIDE MOBILE FOR CARDIZEM DRIP TO BE STARTED AT SET RATE @ 10. PTS BP IN 90'S, WILL MONITOR. PT RESTING, ARRIVED AT BEDSIDE. ALL NEEDS ADDRESSED.
--- NOTE | 2018-07-25 18:30 | NUR ---
Problems reprioritized. Patient report given, questions answered & plan of care reviewed with MAGALIE PINEDA.
[2018-07-25] MEDS: PRO STAT PO SCH (20:00)
[2018-07-25] MEDS ORDERED: pravastatin 10mg tablet PO SCH (21:00)
[2018-07-25] MEDS: amiodarone/D5 360MG/200ML BAG 200 ML IV SCH (23:53)
[2018-07-26] VITALS (16 sets, daily range): BP systolic 73–103; BP diastolic 43–71
[2018-07-26] MEDS: amiodarone/D5 360MG/200ML BAG 200 ML IV SCH ×3 (03:55→16:05)
[2018-07-26] MEDS: oxyCODONE IR 5mg (immed. release) tablet PO PRN ×2 (03:58→10:04)
[2018-07-26 05:34] LABS: BASOPHILS % (AUTO) 0 % (0-1); EOSINOPHILS % (AUTO) 0 % (0-6); HEMATOCRIT 33.6 % (35.0-45.0); HEMOGLOBIN 10.9 g/dl (12.0-16.0); LYMPHOCYTES # (AUTO) 0.1 X10'3 (1.1-4.8); LYMPHOCYTES % (AUTO) 3.2 % (21-51); MEAN CORPUSCULAR HEMOGLOBIN 33.7 PG (27.0-31.0); MEAN CORPUSCULAR HGB CONC 32.3 % (33.0-36.5); MEAN CORPUSCULAR VOLUME 104.3 FL (78-98); MEAN PLATELET VOLUME 9.1 FL (7.4-10.4); MONOCYTES # (AUTO) 0.5 X10'3 (0-0.9); MONOCYTES % (AUTO) 12.6 % (2-12); NEUTROPHILS # (AUTO) 3.5 X10'3 (1.8-7.7); NEUTROPHILS % (AUTO) 84.2 % (42-75); RED BLOOD COUNT 3.22 X10'6 (4.20-5.60); RED CELL DISTRIBUTION WIDTH 17.3 % (11.5-14.5); WHITE BLOOD COUNT 4.1 X10'3 (4.5-11.0)
[2018-07-26 05:47] LABS: ALBUMIN 3.6 G/DL (3.4-5.0); ANION GAP 12 (8-16); BLOOD UREA NITROGEN 37 MG/DL (7-18); BUN/CREATININE RATIO 8.9 (6.6-38.0); CALCIUM 8.5 MG/DL (8.5-10.1); CHLORIDE 98 MMOL/L (99-107); CREATININE 4.17 MG/DL (0.40-0.90); GLUCOSE 119 MG/DL (70-104); POTASSIUM 3.7 MMOL/L (3.5-5.1); SODIUM 139 MMOL/L (135-145); TOTAL CARBON DIOXIDE 29.2 MMOL/L (24-32); eGFR 10 ML/MIN
--- NOTE | 2018-07-26 06:15 | NUR ---
Patient in room PCU 3024. I have received report from MAGALIE Her and had the opportunity to ask questions and assume patient care.
[2018-07-26 06:19] LABS: PLATELET COUNT 48 X10'3 (140-440)
[2018-07-26] MEDS: predniSONE 5mg tablet PO SCH ×2 (08:00→09:15)
[2018-07-26] MEDS: PRO STAT PO SCH ×2 (08:00→19:55)
[2018-07-26] MEDS ORDERED: non-formulary drug (Vit B Cmplx 3/FA/Vit C/Biotin (Rena-Vite Rx Tablet) 1 TAB) PO SCH (08:00)
[2018-07-26] MEDS: levoTHYROXINE 75mcg tablet PO SCH (09:14)
[2018-07-26] MEDS: atorvastatin 10mg tablet PO SCH (09:14)
[2018-07-26] MEDS: multivitamins, therapeutics tablet PO SCH (09:14)
[2018-07-26] MEDS: pantoprazole 40mg Tablet.DR PO SCH (09:15)
[2018-07-26] MEDS: apixaban 2.5mg tablet PO SCH (09:15)
[2018-07-26] MEDS: ascorbic acid 500mg tablet PO SCH (09:15)
[2018-07-26] MEDS: docusate sod 100mg capsule PO SCH (09:15)
[2018-07-26] MEDS: folic acid/vitamin B complex w/vitamin C 0.8mg tablet PO SCH (09:16)
[2018-07-26] MEDS: ondansetron/PF 4mg/2ml inj IV PRN (09:28)
--- NOTE | 2018-07-26 09:30 | NUR ---
MD TAVERAS CALLED INFORMED THAT PT IS STILL VOMITING AND THROWING UP AND HER BELLY HURTS NO ORDERS FOR CT YET
--- NOTE | 2018-07-26 09:30 | NUR ---
oral medications admistered pt threw them up shortly after zofran admistered will tell MD when he rounds
[2018-07-26] MEDS: tacrolimus anhydrous 1mg capsule PO SCH (10:04)
[2018-07-26] MEDS ORDERED: pneumococcal 23-VAL P-sac vacc 25 mcg/0.5ml vial IMVAC ONE (12:20)
[2018-07-26] MEDS ORDERED: vancomycin/NS 1 GM ADD-VANTAGE 250 ML IV ONE (14:35)
--- NOTE | 2018-07-26 15:00 | NUR ---
MD TAVERAS CALLED ABOUT PTS TEMP 103.1 HE ADDED ABX AND ORDERED CT OF ABD WITH CONTRAST
--- NOTE | 2018-07-26 15:15 | NUR ---
GOT CONSENT FOR CONTRAST FROM RAFAEL RN WAS SECOND TELEPHONE MAGALIE GARDNER
[2018-07-26] MEDS: levoFLOXACIN-Levaquin 250mg/D5 50 ML IV SCH (15:17)
[2018-07-26] MEDS: metroNIDAZOLE-Flagyl 500mg/NS 100 ML IV SCH ×2 (16:05→23:09)
--- NOTE | 2018-07-26 18:21 | NUR ---
Problems reprioritized. Patient report given, questions answered & plan of care reviewed with MAGALIE Curtis.
--- NOTE | 2018-07-26 18:53 | NUR ---
Patient in room PCU 3024. I have received report from Robert MEJIAS and had the opportunity to ask questions and assume patient care.
[2018-07-26] MEDS: diatr meglu/diatrizoate 30ml oral sol.-(3 dose) bottle PO SCH (23:08)
[2018-07-27] VITALS (8 sets, daily range): BP systolic 86–109; BP diastolic 44–60
[2018-07-27] MEDS: amiodarone/D5 360MG/200ML BAG 200 ML IV SCH ×5 (03:17→22:23)
--- NOTE | 2018-07-27 04:30 | NUR ---
pt found with NG tube out. re-placed NG tube and checked placement. put pt on low intermittent suction. pt tolerated procedure well. will continue to monitor.
[2018-07-27 05:26] LABS: BASOPHILS % (AUTO) 0 % (0-1); EOSINOPHILS % (AUTO) 0 % (0-6); HEMATOCRIT 35.1 % (35.0-45.0); HEMOGLOBIN 11.4 g/dl (12.0-16.0); LYMPHOCYTES # (AUTO) 0.1 X10'3 (1.1-4.8); LYMPHOCYTES % (AUTO) 2.1 % (21-51); MEAN CORPUSCULAR HEMOGLOBIN 33.9 PG (27.0-31.0); MEAN CORPUSCULAR HGB CONC 32.4 % (33.0-36.5); MEAN CORPUSCULAR VOLUME 104.4 FL (78-98); MEAN PLATELET VOLUME 10.4 FL (7.4-10.4); MONOCYTES # (AUTO) 0.4 X10'3 (0-0.9); MONOCYTES % (AUTO) 8.2 % (2-12); NEUTROPHILS % (AUTO) 89.7 % (42-75); PLATELET COUNT 61 X10'3 (140-440); RED BLOOD COUNT 3.36 X10'6 (4.20-5.60); RED CELL DISTRIBUTION WIDTH 17.5 % (11.5-14.5); WHITE BLOOD COUNT 4.5 X10'3 (4.5-11.0)
[2018-07-27 05:47] LABS: ALBUMIN 3.3 G/DL (3.4-5.0); ANION GAP 15 (8-16); BLOOD UREA NITROGEN 54 MG/DL (7-18); BUN/CREATININE RATIO 10.4 (6.6-38.0); CALCIUM 8.7 MG/DL (8.5-10.1); CHLORIDE 98 MMOL/L (99-107); CREATININE 5.21 MG/DL (0.40-0.90); GLUCOSE 117 MG/DL (70-104); MAGNESIUM 2.1 MG/DL (1.5-2.4); PHOSPHORUS 3.2 MG/DL (2.3-4.5); SODIUM 139 MMOL/L (135-145); TOTAL CARBON DIOXIDE 25.7 MMOL/L (24-32); eGFR 8 ML/MIN
--- NOTE | 2018-07-27 06:10 | NUR ---
Patient in room PCU 3024. I have received report from Ernestina MEJIAS and had the opportunity to ask questions and assume patient care.
--- NOTE | 2018-07-27 06:18 | NUR ---
Problems reprioritized. Patient report given, questions answered & plan of care reviewed with Jose R MEJIAS.
[2018-07-27 07:17] LABS: ANISOCYTOSIS 1+; PLATELET ESTIMATE DECREASED; TOTAL CELLS COUNTED 100
[2018-07-27 07:18] LABS: POIKILOCYTOSIS FEW
[2018-07-27] MEDS: diatr meglu/diatrizoate 30ml oral sol.-(3 dose) bottle PO SCH ×2 (07:29→09:08)
[2018-07-27] MEDS: folic acid/vitamin B complex w/vitamin C 0.8mg tablet PO SCH (07:52)
[2018-07-27] MEDS: levoTHYROXINE 75mcg tablet PO SCH (07:52)
[2018-07-27] MEDS: pantoprazole 40mg Tablet.DR PO SCH (07:52)
[2018-07-27] MEDS: atorvastatin 10mg tablet PO SCH (07:52)
[2018-07-27] MEDS: predniSONE 5mg tablet PO SCH ×2 (07:53→08:00)
[2018-07-27] MEDS: ascorbic acid 500mg tablet PO SCH (07:53)
[2018-07-27] MEDS: multivitamins, therapeutics tablet PO SCH (07:53)
[2018-07-27] MEDS: metroNIDAZOLE-Flagyl 500mg/NS 100 ML IV SCH (07:54)
[2018-07-27] MEDS: levoFLOXACIN-Levaquin 250mg/D5 50 ML IV SCH (07:54)
[2018-07-27] MEDS ORDERED: epoetin 20,000 units/ml inj IV ONE (08:00)
[2018-07-27] MEDS: PRO STAT PO SCH ×2 (08:00→20:00)
[2018-07-27] MEDS: docusate sod 100mg capsule PO SCH (08:00)
[2018-07-27] MEDS ORDERED: albumin (Human) 5% 250ml 250 ML IV PRN (08:00)
[2018-07-27] MEDS ORDERED: iohexol 300mg/ml 100ml inj. ONE (09:05)
[2018-07-27] MEDS: tacrolimus anhydrous 1mg capsule PO SCH (09:08)
[2018-07-27] MEDS ORDERED: LIDOcaine 1% (10mg/ml) 2ml vial SQ ONE (09:45)
[2018-07-27] MEDS: oxyCODONE IR 5mg (immed. release) tablet PO PRN (12:51)
--- NOTE | 2018-07-27 18:20 | NUR ---
Problems reprioritized. Patient report given, questions answered & plan of care reviewed with Deep RN.
[2018-07-27] MEDS: HYDROmorphone inj. 0.5 MG/0.5 ML DISP.SYRIN IV PRN ×2 (19:27→23:44)
--- NOTE | 2018-07-27 23:57 | NUR ---
Paged and notified Dr. Tresa FANG in regards to positive blood culture results. PAGER ID: [phone] MESSAGE: [id number] Elvis Pena. pt second set of blood cultures have resulted with gram (-) rods in anaerobic bottle @8 hours from dialysis fistula site. Currently has active orders for Levaquin and Flagyl. Viral MEJIAS Tele #[id number]
[2018-07-28] VITALS (10 sets, daily range): BP systolic 82–101; BP diastolic 39–57
--- NOTE | 2018-07-28 00:03 | NUR ---
Called and notified Therese Zeferino ARRINGTON in regards to pt second set of positive blood cultures. Orders to cont treatment as prescribed with no new orders at this time. Will cont to monitor. 3024-Elvis Mckeon. pt second set of blood cultures have resulted with gram (-) rods in anaerobic bottle @8 hours from dialysis fistula site. Currently has active orders for Levaquin and Flagyl.
[2018-07-28] MEDS: metroNIDAZOLE 500mg tablet PO SCH ×3 (01:24→15:59)
[2018-07-28] MEDS: temazepam 15mg capsule PO PRN ×2 (01:25→21:19)
[2018-07-28] MEDS: amiodarone/D5 360MG/200ML BAG 200 ML IV SCH ×4 (04:15→22:39)
--- NOTE | 2018-07-28 05:22 | NUR ---
pt second set of blood cultures have resulted with gram (-) rods in aerobic bottle from dialysis fistula site. Currently has active orders for Levaquin and Flagyl. No new orders at this time, will cont to monitor.
[2018-07-28 06:16] LABS: BASOPHILS % (AUTO) 0 % (0-1); EOSINOPHILS % (AUTO) 0 % (0-6); HEMATOCRIT 32.5 % (35.0-45.0); HEMOGLOBIN 10.6 g/dl (12.0-16.0); LYMPHOCYTES # (AUTO) 0.1 X10'3 (1.1-4.8); LYMPHOCYTES % (AUTO) 2.1 % (21-51); MEAN CORPUSCULAR HEMOGLOBIN 33.8 PG (27.0-31.0); MEAN CORPUSCULAR HGB CONC 32.7 % (33.0-36.5); MEAN CORPUSCULAR VOLUME 103.4 FL (78-98); MEAN PLATELET VOLUME 10.8 FL (7.4-10.4); MONOCYTES # (AUTO) 0.8 X10'3 (0-0.9); NEUTROPHILS # (AUTO) 6.1 X10'3 (1.8-7.7); NEUTROPHILS % (AUTO) 86.9 % (42-75); PLATELET COUNT 57 X10'3 (140-440); RED BLOOD COUNT 3.14 X10'6 (4.20-5.60); RED CELL DISTRIBUTION WIDTH 17.5 % (11.5-14.5)
[2018-07-28 06:30] LABS: ANION GAP 16 (8-16); BLOOD UREA NITROGEN 34 MG/DL (7-18); BUN/CREATININE RATIO 9.7 (6.6-38.0); CALCIUM 8.6 MG/DL (8.5-10.1); CHLORIDE 98 MMOL/L (99-107); CREATININE 3.51 MG/DL (0.40-0.90); GLUCOSE 103 MG/DL (70-104); PHOSPHORUS 2.7 MG/DL (2.3-4.5); POTASSIUM 3.8 MMOL/L (3.5-5.1); SODIUM 139 MMOL/L (135-145); TOTAL CARBON DIOXIDE 25.4 MMOL/L (24-32); eGFR 13 ML/MIN
--- NOTE | 2018-07-28 07:06 | NUR ---
Problems reprioritized. Patient report given, questions answered & plan of care reviewed with MAGALIE Quiroz.
[2018-07-28] MEDS: pantoprazole 40mg Tablet.DR PO SCH (07:30)
[2018-07-28] MEDS: docusate sod 100mg capsule PO SCH (08:00)
[2018-07-28] MEDS: PRO STAT PO SCH ×2 (08:00→19:58)
[2018-07-28] MEDS: predniSONE 5mg tablet PO SCH ×2 (08:00→08:33)
[2018-07-28] MEDS: folic acid/vitamin B complex w/vitamin C 0.8mg tablet PO SCH (08:27)
[2018-07-28] MEDS: multivitamins, therapeutics tablet PO SCH (08:29)
[2018-07-28] MEDS: levoTHYROXINE 75mcg tablet PO SCH (08:30)
[2018-07-28] MEDS: ascorbic acid 500mg tablet PO SCH (08:32)
[2018-07-28] MEDS: atorvastatin 10mg tablet PO SCH (08:32)
[2018-07-28] MEDS: tacrolimus anhydrous 1mg capsule PO SCH (08:44)
[2018-07-28] MEDS: ondansetron/PF 4mg/2ml inj IV PRN (08:47)
[2018-07-28 09:35] LABS: ANISOCYTOSIS 2+; PLATELET ESTIMATE DECREASED; TOTAL CELLS COUNTED 200
[2018-07-28 09:36] LABS: BURR CELLS 2+; HYPOCHROMASIA 1+; POLYCHROMASIA 1+; TARGET CELLS 1+
[2018-07-28] MEDS: HYDROmorphone inj. 0.5 MG/0.5 ML DISP.SYRIN IV PRN ×3 (12:05→20:15)
[2018-07-28] MEDS ORDERED: normal saline 500ml IV soln 500 ML IV ONE ×2 (15:35→18:05)
[2018-07-28] MEDS ORDERED: normal saline 1000ml 1,000 ML IV SCH (15:35)
--- NOTE | 2018-07-28 18:06 | NUR ---
Pt experiencing low blood pressure for the second time again. Spoke with Gwendolyn Cooley who said to administer another 500CC bolus. NS @ 50 still infusing will continue to monitor.
--- NOTE | 2018-07-28 18:40 | NUR ---
Patient in room PCU 3024. I have received report from MAGALIE Quiroz and had the opportunity to ask questions and assume patient care.
[2018-07-29] MEDS: metroNIDAZOLE 500mg tablet PO SCH (00:38)
[2018-07-29 03:00] VITALS: BP 85/65
[2018-07-29] MEDS: amiodarone/D5 360MG/200ML BAG 200 ML IV SCH ×5 (05:05→22:55)
--- NOTE | 2018-07-29 06:10 | NUR ---
Patient in room PCU 3024. I have received report from Rebecca MEJIAS and had the opportunity to ask questions and assume patient care.
--- NOTE | 2018-07-29 06:10 | NUR ---
Problems reprioritized. Patient report given, questions answered & plan of care reviewed with MAGALIE Odell.
[2018-07-29 06:28] LABS: BASOPHILS % (AUTO) 0.2 % (0-1); EOSINOPHILS % (AUTO) 0 % (0-6); HEMATOCRIT 36.5 % (35.0-45.0); HEMOGLOBIN 11.8 g/dl (12.0-16.0); LYMPHOCYTES # (AUTO) 0.2 X10'3 (1.1-4.8); LYMPHOCYTES % (AUTO) 2.5 % (21-51); MEAN CORPUSCULAR HEMOGLOBIN 33.7 PG (27.0-31.0); MEAN CORPUSCULAR HGB CONC 32.4 % (33.0-36.5); MEAN CORPUSCULAR VOLUME 103.9 FL (78-98); MEAN PLATELET VOLUME 11.4 FL (7.4-10.4); MONOCYTES % (AUTO) 13.3 % (2-12); NEUTROPHILS # (AUTO) 6.1 X10'3 (1.8-7.7); PLATELET COUNT 63 X10'3 (140-440); RED BLOOD COUNT 3.52 X10'6 (4.20-5.60); RED CELL DISTRIBUTION WIDTH 17.3 % (11.5-14.5); WHITE BLOOD COUNT 7.2 X10'3 (4.5-11.0)
[2018-07-29 06:44] LABS: ALBUMIN 2.7 G/DL (3.4-5.0); ANION GAP 16 (8-16); BLOOD UREA NITROGEN 48 MG/DL (7-18); BUN/CREATININE RATIO 11.7 (6.6-38.0); CALCIUM 8.5 MG/DL (8.5-10.1); CHLORIDE 98 MMOL/L (99-107); CREATININE 4.09 MG/DL (0.40-0.90); GLUCOSE 110 MG/DL (70-104); PHOSPHORUS 2.9 MG/DL (2.3-4.5); POTASSIUM 3.9 MMOL/L (3.5-5.1); SODIUM 138 MMOL/L (135-145); TOTAL CARBON DIOXIDE 24.1 MMOL/L (24-32); eGFR 11 ML/MIN
[2018-07-29 07:00] VITALS: BP 80/45
[2018-07-29 07:10] LABS: ANISOCYTOSIS 1+; EOSINOPHILS % (MANUAL) 0.5 % (0-6); LYMPHOCYTES % (MANUAL) 1.5 % (21-51); MONOCYTES % (MANUAL) 12.5 % (2-12); NEUTROPHILS % (MANUAL) 73.5 % (42-75); PLATELET ESTIMATE DECREASED; TOTAL CELLS COUNTED 200
[2018-07-29 07:11] LABS: POLYCHROMASIA FEW
[2018-07-29 07:12] LABS: TARGET CELLS FEW; TEAR DROP CELLS 1+
[2018-07-29] MEDS: predniSONE 5mg tablet PO SCH ×2 (08:00→09:02)
[2018-07-29] MEDS: PRO STAT PO SCH ×2 (08:00→20:00)
[2018-07-29] MEDS: docusate sod 100mg capsule PO SCH (08:56)
[2018-07-29] MEDS: tacrolimus anhydrous 1mg capsule PO SCH (08:59)
[2018-07-29] MEDS: multivitamins, therapeutics tablet PO SCH (09:01)
[2018-07-29] MEDS: folic acid/vitamin B complex w/vitamin C 0.8mg tablet PO SCH (09:01)
[2018-07-29] MEDS: ascorbic acid 500mg tablet PO SCH (09:01)
[2018-07-29] MEDS: atorvastatin 10mg tablet PO SCH (09:02)
[2018-07-29] MEDS: levoTHYROXINE 75mcg tablet PO SCH (09:15)
[2018-07-29] MEDS: pantoprazole 40mg Tablet.DR PO SCH (09:15)
[2018-07-29 11:00] VITALS: BP 101/50
[2018-07-29] MEDS ORDERED: levoFLOXACIN 250mg tablet PO SCH (11:00)
[2018-07-29] MEDS: meropenem inj 500 MG in normal saline 100ml IV soln 100 ML IV SCH ×2 (11:29→21:42)
[2018-07-29] MEDS: HYDROmorphone inj. 0.5 MG/0.5 ML DISP.SYRIN IV PRN ×3 (11:47→23:54)
[2018-07-29] MEDS ORDERED: normal saline 1000ml 1,000 ML IV ONE (11:50)
--- NOTE | 2018-07-29 13:21 | NUR ---
Initial: Pt admit w/ ALOC hx ESRD on HD. DX colitis vs pyelonephritis w/ nausea and abdominal pain. 0% clear liquids and aspirating any PO per RN. Pt hase L NG in place previously to suction but now no suction. KIMANI d/w RN who shares MD is considering nutrition support given likely aspiration; KIMANI shared that TF consult will be required by MD nursing project coordinator if MD would like nutrition support and if concern for aspiration shoudl make pt NPO. Pt would benefit from NG feeds given day 5 0% PO on clears. OCC THER BSS will also be ordered to evaluate swallow safety. Recs below for pt needs if NGTF. Given low PO hx, severe weakness, BLE +2 edema pt qualifies for severe malnutrition at this time; notified. Rec: 1. IF NGTF, Nepro at 45ml/hr goal 2. IF NGTF, prealbumin Q /, daily wts 3. Advance diet per OCC THER to renal Addendum: 07/29/18 at [address] Amended: Links added.
[2018-07-29 15:00] VITALS: BP 88/57
[2018-07-29] MEDS: oxyCODONE IR 5mg (immed. release) tablet PO PRN (18:34)
[2018-07-29 19:00] VITALS: BP 96/56
[2018-07-29] MEDS: apixaban 2.5mg tablet PO SCH (21:42)
[2018-07-29 23:00] VITALS: BP 92/51
[2018-07-29] MEDS: diphenhydrAMINE 25mg capsule PO PRN (23:40)
--- NOTE | 2018-07-29 23:54 | NUR ---
Dilaudid administered at 2142 at the same time as scheduled Eliquis medication. However, Dilaudid did not scan, so eMAR appears that Dilaudid was just administered now. This is incorrect. Dilaudid administered at 2142.
[2018-07-30] MEDS: oxyCODONE IR 5mg (immed. release) tablet PO PRN (01:22)
[2018-07-30 03:00] VITALS: BP 91/50
[2018-07-30] MEDS: amiodarone/D5 360MG/200ML BAG 200 ML IV SCH ×3 (04:59→14:37)
[2018-07-30 06:00] VITALS: BP 88/38
--- NOTE | 2018-07-30 06:30 | NUR ---
Patient in room PCU 3024. I have received report from Jose R MEJIAS and had the opportunity to ask questions and assume patient care.
--- NOTE | 2018-07-30 06:44 | NUR ---
Problems reprioritized. Patient report given, questions answered & plan of care reviewed with Chio MEJIAS.
[2018-07-30] MEDS ORDERED: ascorbic acid 500mg tablet PO SCH (08:00)
[2018-07-30] MEDS: PRO STAT PO SCH ×2 (08:00→20:00)
[2018-07-30] MEDS: apixaban 2.5mg tablet PO SCH (08:00)
[2018-07-30] MEDS ORDERED: LIDOcaine 1% (10mg/ml) 2ml vial SQ ONE (08:00)
[2018-07-30] MEDS: docusate sod 100mg capsule PO SCH (08:00)
[2018-07-30] MEDS ORDERED: normal saline 1000ml 250 ML IV PRN (08:00)
[2018-07-30] MEDS: predniSONE 5mg tablet PO SCH ×2 (08:00→08:27)
[2018-07-30] MEDS: multivitamins, therapeutics tablet PO SCH (08:24)
[2018-07-30] MEDS: folic acid/vitamin B complex w/vitamin C 0.8mg tablet PO SCH (08:24)
[2018-07-30] MEDS: levoTHYROXINE 75mcg tablet PO SCH (08:24)
[2018-07-30] MEDS: pantoprazole 40mg Tablet.DR PO SCH (08:26)
[2018-07-30] MEDS: atorvastatin 10mg tablet PO SCH (08:26)
[2018-07-30] MEDS: tacrolimus anhydrous 1mg capsule PO SCH (08:27)
[2018-07-30] MEDS: meropenem inj 500 MG in normal saline 100ml IV soln 100 ML IV SCH (08:30)
--- NOTE | 2018-07-30 10:00 | NUR ---
Notified by PCT Mary that patient pulled out NG tube and PIV in right hand.
[2018-07-30 11:00] VITALS: BP 76/43
[2018-07-30] MEDS: HYDROmorphone inj. 0.5 MG/0.5 ML DISP.SYRIN IV PRN (11:45)
[2018-07-30] MEDS ORDERED: LORazepam 2 mg/ml vial IV PRN (13:05)
[2018-07-30] MEDS ORDERED: HYDROmorphone 1 mg/ml syringe IV PRN (13:10)
[2018-07-30] MEDS: HYDROmorphone 1 mg/ml syringe IV PRN ×2 (14:16→17:02)
--- NOTE | 2018-07-30 18:30 | NUR ---
Problems reprioritized. Patient report given, questions answered & plan of care reviewed with Katya MEJIAS.
--- NOTE | 2018-07-30 18:38 | NUR ---
Patient in room PCU 3024. I have received report from janessa gomez and had the opportunity to ask questions and assume patient care.
--- NOTE | 2018-07-30 18:39 | NUR ---
Patient in room PCU 3024. I have received report from Chio MEJIAS and had the opportunity to ask questions and assume patient care.
[2018-07-30] MEDS ORDERED: lactobacillus rhamnosus 10,000 MMU CELLS/CAPSULE PO SCH (20:00)
--- NOTE | 2018-07-30 21:39 | NUR ---
PATIENT ; FAMILY AT BEDSIDE; PATIENT NOT RESPONDING TO [employer] BELONGINGS SENT WITH FAMILY; [employer] CALLED; AWAITING PICKUP
--- NOTE | 2018-07-30 21:39 | NUR ---
RN IS TO DOCUMENT YES TO ALL APPLICABLE AREAS Pronouncement of : 07/30/182138 1. Time Physician Notified:[id number] [employer] 2. Date of :07/30/18 3. Time of : 2138 4. DNR/Withdraw life support documented:YES 5. Monitor strip has been placed on chart:YES 6. Assessment process is of one-minute duration and includes following criteria: a) Patient is unresponsive to all stimuli: b) Pupils fixed and non-reactive: YES c) Auscultation of precordium reveals absence of heart tones: d) Auscultation of lungs reveals absence of breath sounds: e) Absence of blood pressure / all vital signs: f) QRS complexes are not present on monitor / EKG strip:YES g) Pacer spikes without capture: 4. Comments:FAMILY AT BEDSIDE
--- NOTE | 2018-07-30 23:50 | NUR ---
patient was picked up by [facility] belongings already home with family
== END 2018-07-30 23:45 | disposition expired | DRG 917 ==
LOC: ER 10:46 → ED HOLD 15:11 → CICU 2S 17:21 → PCU 3S 07-25 17:09
PROVIDERS: ADMIT Internal Medicine Critical Care Medicine; ATTEND Internal Medicine Critical Care Medicine
PROC: 5A1D70Z Performance of Urinary Filtration, Intermittent, Less than 6 Hours Per Day (ICD-10-PCS; principal; 2018-07-25)
PROC: 5A1D70Z Performance of Urinary Filtration, Intermittent, Less than 6 Hours Per Day (ICD-10-PCS; 2018-07-27)
DX: T40.2X1A Poisoning by other opioids, accidental (unintentional), initial encounter (principal); G92 Toxic encephalopathy; N18.6 End stage renal disease; I13.11 Hypertensive heart and chronic kidney disease without heart failure, with stage 5 chronic kidney disease, or end stage renal disease; I95.9 Hypotension, unspecified; I48.91 Unspecified atrial fibrillation; D63.1 Anemia in chronic kidney disease; J44.9 Chronic obstructive pulmonary disease, unspecified; K52.9 Noninfective gastroenteritis and colitis, unspecified; Z51.5 Encounter for palliative care; Z66 Do not resuscitate; Z99.2 Dependence on renal dialysis; Z88.0 Allergy status to penicillin; Z88.8 Allergy status to other drugs, medicaments and biological substances; Z88.2 Allergy status to sulfonamides; T40.2X2A Poisoning by other opioids, intentional self-harm, initial encounter; Y92.89 Other specified places as the place of occurrence of the external cause; Z28.21 Immunization not carried out because of patient refusal
CPT/HCPCS: 36415; 71045; 74018; 74177; 80048; 80053; 82150; 82607; 83605; 83690; 83735; 84100; 84484; 85025; 85610; 87040; 87070; 87077; 87186; 92616; 93005; 94760; 96361; 96365; 96375; 97110; 97161; 97530; 99285; G0257; G0378; J0282; J0780; J0885; J1170; J1956; J2001; J2060; J2185; J2310; J2405; J3370; J3490; J7030; J7507; J7512; P9045; P9047; Q0163; Q9963; Q9967